=== PATIENT | female | born 1965 | race Hispanic/Latino ===

== ENCOUNTER 2019-06-23 10:13 | Emergency (ER) | payer BC, SELFPAY ==
[2019-06-23 12:10] LABS: Absolute Lymphocytes (CBC) 2.1 K/uL (0.7-4.9); Basophils % 0.6 % (0-1.3); Hematocrit 40.4 % (36.0-45.0); MPV 10.5 fL (7.6-11.3); RBC Red Blood Cell Count 4.42 M/uL (3.86-4.86)
[2019-06-23 12:13] LABS: Protime INR 1.04
[2019-06-23 12:26] LABS: ALT/SGPT 28 U/L (12-78); AST/SGOT 22 U/L (15-37); Albumin 4.2 g/dL (3.4-5.0); Alkaline Phosphatase 113 U/L (45-117); BUN Blood Urea Nitrogen 13 mg/dL (7-18); Bicarbonate 24 mmol/L (21-32); Bilirubin Direct 0.1 mg/dL (0-0.2); Bilirubin Total 0.5 mg/dL (0.2-1.0); Glucose Level 88 mg/dL (74-106); Magnesium 2.4 mg/dL (1.8-2.4); NT PRO-BNP 64 pg/mL (<125); Potassium 3.8 mmol/L (3.5-5.1); Sodium Level 143 mmol/L (136-145); Troponin (Emerg Dept Use Only) < 0.02 ng/mL (0.0-0.045)
--- NOTE | 2019-06-23 12:50 | RAD REPORT ---
EXAM DESCRIPTION: RAD - Chest Single View - 06/23/2019 12:25 pm CLINICAL HISTORY: Chest and abdominal pain, known situs inversus COMPARISON: None. TECHNIQUE: AP portable chest image was obtained 1217 hours . FINDINGS: Lung burton are clear. Heart size and vasculature are normal. Heart and aortic arch are on the right on this film. Provided information indicates that situs inversus is a known finding in thi s patient. No measurable pleural effusion and no pneumothorax. No acute bony abnormality seen. No acu te aortic findings suspected. IMPRESSION: No acute cardiopulmonary process.
--- NOTE | 2019-06-23 13:39 | RAD REPORT ---
EXAM DESCRIPTION: US - Abdomen Exam Limited - 06/23/2019 1:27 pm CLINICAL HISTORY: ABD PAIN COMPARISON: No comparisons FINDINGS: No gallstones, sludge or other abnormalities within the gallbladder lumen. There is no wal l thickening or pericholecystic fluid. No common duct stone or biliary tree dilatation identified. IMPRESSION: Normal gallbladder and biliary tree ultrasound.
--- NOTE | 2019-06-23 16:26 | ER ---
Nurse's Notes [facility] Name: Joan Roa Age: 54 yrs Sex: Female : 1965 Arrival Date: 06/23/2019 Time: 10:15 Bed 19 Private MD: Unknown, Unknown Diagnosis: Colic Presentation: 06/23 10:32 Presenting complaint: Child states: "She's having pain in her right lower chest and aj1 upper abdomen, it started 2 days ago, and it radiates from her back to the front" Denies shortness of breath, palpitations, fever. Reports that the pain is worse with movement. Transition of care: patient was not received from another setting of care. Onset of symptoms was June 2019. Risk Assessment: Do you want to hurt yourself or someone else? Patient reports no desire to harm self or others. Initial Sepsis Screen: Does the patient meet any 2 criteria? No. Patient's initial sepsis screen is negative. Does the patient have a suspected source of infection? No. Patient's initial sepsis screen is negative. Care prior to arrival: None. 10:32 Method Of Arrival: Ambulatory aj1 10:32 Acuity: THEODORA 3 aj1 Triage Assessment: 10:35 General: Appears in no apparent distress. comfortable, Behavior is calm, cooperative, aj1 appropriate for age. Pain: Complains of pain in diaphragm and left upper quadrant Pain radiates to back Pain currently is 7 out of 10 on a pain scale. Quality of pain is described as pressure, Pain began 2-3 days ago. Is intermittent. Neuro: Level of Consciousness is awake, alert, obeys commands, Oriented to person, place, time, situation. Cardiovascular: Reports chest pain, Denies palpitations, shortness of breath, Patient's skin is warm and dry. Respiratory: Airway is patent Respiratory effort is even, unlabored, Respiratory pattern is regular, symmetrical. GI: Reports upper abdominal pain, Patient currently denies diarrhea, nausea, vomiting. 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 - Social history:: Smoking status: Patient/guardian denies using tobacco. - Ebola Screening: : Patient denies travel to an Ebola-affected area in the 21 days before illness onset. Screenin:40 Abuse screen: Denies threats or abuse. Nutritional screening: No deficits noted. aa5 Tuberculosis screening: No symptoms or risk factors identified. Fall Risk None identified. Assessment: 11:40 General: Appears comfortable, Behavior is calm, cooperative. Pain: Complains of pain in aa5 left mid back Pain radiates to right upper quadrant and left upper quadrant Pain currently is 5 out of 10 on a pain scale. Quality of pain is described as sharp, Is intermittent. Neuro: Level of Consciousness is awake, alert, obeys commands, Oriented to person, place, time, situation. Cardiovascular: Denies chest pain, diaphoresis, lightheadedness, nausea, palpitations, shortness of breath, syncope, vomiting, Heart tones S1 S2 present Capillary refill < 3 seconds is brisk in bilateral fingers Patient's skin is warm and dry. Edema is absent. Rhythm is regular. Respiratory: Reports intermittent slight cough. Airway is patent Respiratory effort is even, unlabored, Respiratory pattern is regular, symmetrical, Breath sounds are clear bilaterally. GI: Abdomen is round non-distended, Bowel sounds present X 4 quads. Abd is soft and non tender X 4 quads. Patient currently denies nausea, vomiting. : No signs and/or symptoms were reported regarding the genitourinary system. EENT: No signs and/or symptoms were reported regarding the EENT system. Derm: Skin is pink, warm \\T\\ dry. Musculoskeletal: Range of motion: intact in all extremities. 12:30 Reassessment: Patient is alert, oriented x 3, equal unlabored respirations, skin aa5 warm/dry/pink. 12:30 Pain: Pain currently is 4 out of 10 on a pain scale. aa5 13:30 Reassessment: Patient is alert, oriented x 3, equal unlabored respirations, skin aa5 warm/dry/pink. Patient denies pain at this time. 14:40 Reassessment: Patient is alert, oriented x 3, equal unlabored respirations, skin aa5 warm/dry/pink. Patient denies pain at this time. 15:32 Reassessment: Patient is alert, oriented x 3, equal unlabored respirations, skin aa5 warm/dry/pink. Patient denies pain at this time. Repeat EKG completed by audiometric technician and repeat troponin drawn and sent to lab. . 16:30 Reassessment: Patient is alert, oriented x 3, equal unlabored respirations, skin aa5 warm/dry/pink. Patient denies pain at this time. 17:15 Reassessment: Patient is alert, oriented x 3, equal unlabored respirations, skin aa5 warm/dry/pink. Patient denies pain at this time. Vital Signs: 10:35 BP 133 / 84; Pulse 55; Resp 18; Temp 97.7; Pulse Ox 98% on R/A; Weight 81.65 kg (R); aj1 Height 5 ft. 4 in. (162.56 cm) (R); Pain 7/10; 12:05 BP 134 / 75; Pulse 50; Resp 16 S; Pulse Ox 100% on R/A; aa5 13:00 BP 121 / 71; Pulse 61; Resp 16 S; Pulse Ox 100% on R/A; aa5 14:45 BP 128 / 68; Pulse 61; Resp 16 S; Temp 98.0(TE); Pulse Ox 98% on R/A; Pain 0/10; aa5 16:00 BP 126 / 88; Pulse 52; Resp 16 S; Pulse Ox 98% on R/A; aa5 17:00 BP 123 / 74; Pulse 52; Resp 18 S; Temp 97.8(TE); Pulse Ox 99% on R/A; Pain 0/10; aa5 10:35 Body Mass Index 30.90 (81.65 kg, 162.56 cm) aj1 ED Course: 10:15 Patient arrived in ED. ag5 10:16 Unknown, Unknown is Private Physician. ag5 10:34 Triage completed. aj1 10:35 Arm band placed on Patient placed in waiting room, Patient notified of wait time. aj1 10:40 Patient has correct armband on for positive identification. Placed in gown. Bed in low aa5 position. Call light in reach. Side rails up X2. front desk monitor on. Pulse ox on. NIBP on. 11:28 Nakia Esparza, VICKEY is Primary Nurse. aa5 11:37 Elodia Mckinnon FNP-C is PHCP. snw 11:37 Luis Bean MD is Attending Physician. snw 11:55 Initial lab(s) drawn, by me, sent to lab. Inserted saline lock: 20 gauge in right aa5 antecubital area, using aseptic technique. Blood collected. 12:28 XRAY Chest (1 view) In Process Unspecified. EDMS 13:32 US Abdomen Limited In Process Unspecified. EDMS 15:47 EKG done, by audiometric technician. reviewed by Elodia HOGAN. sm3 17:15 No provider procedures requiring assistance completed. IV discontinued, intact, aa5 bleeding controlled, No redness/swelling at site. Pressure dressing applied. Administered Medications: No medications were administered Outcome: 16:25 Discharge ordered by MD. snw 17:15 Discharged to home ambulatory, with family. aa5 17:15 Condition: stable 17:15 Discharge instructions given to patient, Instructed on discharge instructions, follow up and referral plans. medication usage, Demonstrated understanding of instructions, follow-up care, medications, Prescriptions given X 1. 17:16 Patient left the ED. aa5 Signatures: Dispatcher [employer] EDKirstie Gomez, RN RN aj1 Elodia Mckinnon FNP-C FNP-Nakia Eaton, RN RN aa5 Gianna Rosen sm3 Homer Lopez ag5 Corrections: (The following items were deleted from the chart) 19:50 17:16 Reassessment: Patient is alert, oriented x 3, equal unlabored respirations, skin aa5 warm/dry/pink. Patient denies pain at this time. aa5
--- NOTE | 2019-06-23 16:26 | EDPHYS ---
Physician Documentation [facility] Name: Joan Roa Age: 54 yrs Sex: Female : 1965 Arrival Date: 06/23/2019 Time: 10:15 Bed 19 Private MD: Unknown, Unknown ED Physician Luis Bean HPI: 06/23 11:57 This 54 yrs old Female presents to ER via Ambulatory with complaints of snw Abdominal Pain, Chest Pain. 11:57 The patient presents with abdominal pain in the epigastric area, in the upper abdomen, snw in the left upper quadrant. Onset: The symptoms/episode began/occurred gradually, 2 day(s) ago, and became persistent. The symptoms do not radiate. Associated signs and symptoms: none. The symptoms are described as crampy. Severity of pain: At its worst the pain was moderate. It is unknown whether or not the patient has had similar symptoms in the past. It is unknown whether or not the patient has recently seen a physician. 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 - Social history:: Smoking status: Patient/guardian denies using tobacco. - Ebola Screening: : Patient denies travel to an Ebola-affected area in the 21 days before illness onset. ROS: 11:57 Constitutional: Negative for fever, chills, and weight loss, Eyes: Negative for injury, snw pain, redness, and discharge, ENT: Negative for injury, pain, and discharge, Neck: Negative for injury, pain, and swelling, Cardiovascular: Negative for chest pain, palpitations, and edema, Abdomen/GI: Negative for nausea, vomiting, diarrhea, and constipation, + upper left abd pain Back: Negative for injury and pain. 11:57 : Negative for injury, bleeding, discharge, and swelling, MS/Extremity: Negative for injury and deformity, Skin: Negative for injury, rash, and discoloration, Neuro: Negative for headache, weakness, numbness, tingling, and seizure, Psych: Negative for depression, anxiety, suicide ideation, homicidal ideation, and hallucinations. 11:57 Respiratory: Positive for cough, with no reported sputum. Exam: 11:57 Constitutional: This is a well developed, well nourished patient who is awake, alert, snw and in no acute distress. Head/Face: Normocephalic, atraumatic. Eyes: Pupils equal round and reactive to light, extra-ocular motions intact. Lids and lashes normal. Conjunctiva and sclera are non-icteric and not injected. Cornea within normal limits. Periorbital areas with no swelling, redness, or edema. ENT: Nares patent. No nasal discharge, no septal abnormalities noted. Tympanic membranes are normal and external auditory canals are clear. Oropharynx with no redness, swelling, or masses, exudates, or evidence of obstruction, uvula midline. Mucous membranes moist. Neck: Trachea midline, no thyromegaly or masses palpated, and no cervical lymphadenopathy. Supple, full range of motion without nuchal rigidity, or vertebral point tenderness. No Meningismus. Cardiovascular: Regular rate and rhythm with a normal S1 and S2. No gallops, murmurs, or rubs. Normal PMI, no JVD. No pulse deficits. Respiratory: Lungs have equal breath sounds bilaterally, clear to auscultation and percussion. No rales, rhonchi or wheezes noted. No increased work of breathing, no retractions or nasal flaring. Abdomen/GI: Soft, non-tender, with normal bowel sounds. No distension or tympany. No guarding or rebound. No evidence of tenderness throughout. Back: No spinal tenderness. No costovertebral tenderness. Full range of motion. Skin: Warm, dry with normal turgor. Normal color with no rashes, no lesions, and no evidence of cellulitis. MS/ Extremity: Pulses equal, no cyanosis. Neurovascular intact. Full, normal range of motion. Neuro: Awake and alert, GCS 15, oriented to person, place, time, and situation. Cranial nerves II-XII grossly intact. Motor strength 5/5 in all extremities. Sensory grossly intact. Cerebellar exam normal. Normal gait. Psych: Awake, alert, with orientation to person, place and time. Behavior, mood, and affect are within normal limits. 11:57 Chest/axilla: Inspection: normal, Palpation: is normal. Vital Signs: 10:35 BP 133 / 84; Pulse 55; Resp 18; Temp 97.7; Pulse Ox 98% on R/A; Weight 81.65 kg (R); aj1 Height 5 ft. 4 in. (162.56 cm) (R); Pain 7/10; 12:05 BP 134 / 75; Pulse 50; Resp 16 S; Pulse Ox 100% on R/A; aa5 13:00 BP 121 / 71; Pulse 61; Resp 16 S; Pulse Ox 100% on R/A; aa5 14:45 BP 128 / 68; Pulse 61; Resp 16 S; Temp 98.0(TE); Pulse Ox 98% on R/A; Pain 0/10; aa5 16:00 BP 126 / 88; Pulse 52; Resp 16 S; Pulse Ox 98% on R/A; aa5 17:00 BP 123 / 74; Pulse 52; Resp 18 S; Temp 97.8(TE); Pulse Ox 99% on R/A; Pain 0/10; aa5 10:35 Body Mass Index 30.90 (81.65 kg, 162.56 cm) aj1 MDM: 11:39 Patient medically screened. snw 16:26 Data reviewed: vital signs, nurses notes. Data interpreted: Pulse oximetry: on room air snw is 98 %. Interpretation: normal. Counseling: I had a detailed discussion with the patient and/or guardian regarding: the historical points, exam findings, and any diagnostic results supporting the discharge/admit diagnosis, the presence of at least one elevated blood pressure reading (>120/80) during this emergency department visit, lab results, radiology results, the need for outpatient follow up, to return to the emergency department if symptoms worsen or persist or if there are any questions or concerns that arise at home. Special discussion: Based on the history and exam findings, there is no indication for further emergent testing or inpatient evaluation. I discussed with the patient/guardian the need to see the primary care provider for further evaluation of the symptoms. 06/23 11:43 Order name: Basic Metabolic Panel; Complete Time: 12:39 snw 06/23 11:43 Order name: CBC with Diff; Complete Time: 12:18 snw 06/23 11:43 Order name: LFT's; Complete Time: 12:39 snw 06/23 11:43 Order name: Magnesium; Complete Time: 12:39 w 06/23 11:43 Order name: NT PRO-BNP; Complete Time: 12:39 06/23 11:43 Order name: PT-INR; Complete Time: 12:18 06/23 11:43 Order name: Troponin (emerg Dept Use Only); Complete Time: 12:39 06/23 11:43 Order name: XRAY Chest (1 view); Complete Time: 12:57 06/23 11:43 Order name: EKG; Complete Time: 11:47 06/23 11:43 Order name: Cardiac monitoring; Complete Time: 11:59 06/23 11:43 Order name: EKG - Nurse/Tech; Complete Time: 11:59 06/23 12:49 Order name: US Abdomen Limited; Complete Time: 14:36 06/23 15:19 Order name: EKG; Complete Time: 15:20 06/23 15:19 Order name: Troponin (emerg Dept Use Only); Complete Time: 16:24 06/23 11:43 Order name: IV Saline Lock; Complete Time: 11:59 06/23 11:43 Order name: Labs collected and sent; Complete Time: 11:59 06/23 11:43 Order name: O2 Per Protocol; Complete Time: 11:59 06/23 11:43 Order name: O2 Sat Monitoring; Complete Time: 11:59 snw Administered Medications: No medications were administered Disposition: 06/23/19 16:25 Discharged to Home. Impression: Colic. - Condition is Stable. - Discharge Instructions: Biliary Colic, Adult, Fat and Cholesterol Restricted Diet, High-Fiber Diet. - Prescriptions for Bentyl 20 mg Oral Tablet - take 1 tablet by ORAL route every 6 hours As needed; 20 tablet. - Work release form, Family Work Release, Medication Reconciliation Form, Thank You Letter, Antibiotic Education, Prescription Opioid Use form. - Follow up: Private Physician; When: 2 - 3 days; Reason: Recheck today's complaints, Continuance of care, Re-evaluation by your physician. Follow up: Emergency Department; When: As needed; Reason: Worsening of condition. Addendum: 06/26/2019 08:58 Co-signature as Attending Physician, Luis Bean MD I agree with the assessment and k dr plan of care. Signatures: Dispatcher [employer] EDKirstie Gomez, RN RN aj1 Luis Bean MD MD [facility] Elodia Mckinnon, HEALTHCARE MANAGEMENT CONSULTANT-C HEALTHCARE MANAGEMENT CONSULTANT-Csnw Nakia Esparza, RN RN aa5 Corrections: (The following items were deleted from the chart) 06/23 17:16 16:25 06/23/2019 16:25 Discharged to Home. Impression: Colic. Condition is Stable. aa5 Forms are Medication Reconciliation Form, Thank You Letter, Antibiotic Education, Prescription Opioid Use. Follow up: Private Physician; When: 2 - 3 days; Reason: Recheck today's complaints, Continuance of care, Re-evaluation by your physician. Follow up: Emergency Department; When: As needed; Reason: Worsening of condition. snw
[2019-06-23 18:15] VITALS: BP 133/84; TEMP 97.7; O2SAT 98
--- NOTE | 2019-06-24 14:16 | EKG ---
Test Date: 2019-06-23 Test Time: 15:33:14 Concrete Saw Operator: YOLA MEASUREMENT RESULTS: Intervals: Rate: 58 AL: 152 QRSD: 84 QT: 438 QTc: 429 [place]: P: AL: 152 QRS: 187 T: 120 INTERPRETIVE STATEMENTS: Sinus bradycardia Right superior axis deviation Abnormal ECG Compared to ECG 06/23/2019 10:38:21 Right superior axis now present Sinus rhythm no longer present Right-axis deviation no longer present Electronically Signed On 06-24-19 14:13:37 CDT by Henry Monterroso
--- NOTE | 2019-06-24 14:18 | EKG ---
Test Date: 2019-06-23 Test Time: 10:38:21 Treasury Director: JUAN MEASUREMENT RESULTS: Intervals: Rate: 60 ME: 128 QRSD: 82 QT: 422 QTc: 422 [place]: P: ME: 128 QRS: 167 T: 119 INTERPRETIVE STATEMENTS: Normal sinus rhythm Right axis deviation Abnormal ECG No previous ECG available for comparison Electronically Signed On 06-24-19 14:13:51 CDT by Henry Monterroso
== END 2019-06-23 17:16 | disposition home or self-care (01) ==
LOC: ER 10:13
DX: R10.84 Generalized abdominal pain (principal); R05 Cough
CPT/HCPCS: 36415; 71045; 76705; 80048; 80076; 83735; 83880; 84484; 85025; 85610; 93005; 99284